=== PATIENT | male | born 1980 | race Two or more races ===

== ENCOUNTER → 2016-11-26 | Outpatient (CLI) | payer BC, OTHER ==
--- NOTE | 2016-11-27 05:08 | REP ---
Clinical: Suspect right sided mass. Technique: Real time resendez scale and color Doppler evaluation using linear high frequency transducer. Findings: With the exception of 3 mm and 4 mm right epididymal head cysts, the testicles and epididymi are normal in contour, size, echogenicity, and vascularity. No mass lesion, infectious/inflammatory process, or torsion noted. Small likely insignificant hydroceles noted. No varicoceles. Right testicle measures 4.6 x 2.3 x 2.8 cm. Left testicle measures 4.6 x 1.9 x 2.6 cm. Impression: Small right epididymal head cysts. Otherwise normal scrotal and testicular ultrasound. Signed by Kev Russell MD 11/27/2016 04:59 A
== END ==
LOC: M SMT 09:53
PROVIDERS: ATTEND Urology
DX: N50.3 Cyst of epididymis (principal)

== ENCOUNTER → 2016-12-24 | Outpatient (REF) | payer OTHER | LOC: M SMT 10:00 | PROVIDERS: ATTEND Urology | DX: Z30.2 Encounter for sterilization (principal) ==

== ENCOUNTER → 2017-05-06 | Outpatient (CLI) | payer BC, OTHER ==
[2017-05-06 09:58] LABS: MEAN CORPUSCULAR HEMOGLOBIN 30.2 pg (27.0-33.0); MEAN CORPUSCULAR HGB CONC 33.8 g/dl (32.0-36.5); MEAN CORPUSCULAR VOLUME 89.5 fl (80.0-96.0); RED CELL DISTRIBUTION WIDTH 12.4 % (11.5-14.5); WHITE BLOOD COUNT 6.9 10^3/uL (4.0-10.0)
[2017-05-06 10:34] LABS: ALBUMIN 4.4 GM/DL (3.2-5.2); ALBUMIN/GLOBULIN RATIO 1.38 (1.00-1.93); ALKALINE PHOSPHATASE 83 U/L (45-117); ALT/SGPT 27 U/L (12-78); ANION GAP 7 MEQ/L (8-16); AST/SGOT 16 U/L (15-37); BILIRUBIN,TOTAL 0.9 MG/DL (0.2-1.0); BLOOD UREA NITROGEN 16 MG/DL (7-18); CALCIUM LEVEL 9.2 MG/DL (8.5-10.1); CARBON DIOXIDE LEVEL 29 MEQ/L (21-32); CHLORIDE LEVEL 103 MEQ/L (98-107); CHOLESTEROL LEVEL 131 MG/DL (<200); CREATININE FOR GFR 0.93 MG/DL (0.70-1.30); GLOMERULAR FILTRATION RATE > 60.0 (>60); GLUCOSE, FASTING 87 MG/DL (70-105); PERCENT SATURATION 30.6 % (19.7-50.0); POTASSIUM SERUM 4.4 MEQ/L (3.5-5.1); SODIUM LEVEL 139 MEQ/L (136-145); THYROXINE (T4) 7.2 UG/DL (4.5-12.0); TOTAL IRON BINDING CAPACITY 337 UG/DL (250-450); TOTAL PROTEIN 7.6 GM/DL (6.4-8.2); TRIGLYCERIDES LEVEL 52 MG/DL (<150)
[2017-05-06 10:58] LABS: VITAMIN B12 LEVEL 751 PG/ML (247-911)
== END ==
LOC: M LAB 08:52
PROVIDERS: ATTEND Family Medicine
DX: D64.9 Anemia, unspecified (principal); R53.83 Other fatigue

== ENCOUNTER 2017-07-09 09:27 | Emergency (ER) | payer OTHER, BC ==
[~2017-07-09] VITALS: Ht 182.9 cm; Wt 84.1 kg
[2017-07-09 09:28] VITALS: BP 142/86
== END 2017-07-09 10:06 | disposition home or self-care (01) ==
LOC: M ED 09:27
DX: M25.511 Pain in right shoulder (principal); G89.29 Other chronic pain

== ENCOUNTER 2018-02-01 12:06 | Day surgery (SDC) | payer BC, OTHER ==
[2018-02-01] MEDS: NS 1,000 ML IV (12:15)
[2018-02-01] MEDS ORDERED: PROPOFOL 200 MG/20 ML VIAL As Ordered ×2 (12:54)
== END 2018-02-01 13:54 | disposition home or self-care (01) ==
LOC: M OPP 12:06
DX: R13.10 Dysphagia, unspecified (principal); R63.4 Abnormal weight loss; R63.8 Other symptoms and signs concerning food and fluid intake; K20.0 Eosinophilic esophagitis; K22.2 Esophageal obstruction; K21.9 Gastro-esophageal reflux disease without esophagitis; F17.220 Nicotine dependence, chewing tobacco, uncomplicated; Z79.899 Other long term (current) drug therapy
CPT/HCPCS: 43249

== ENCOUNTER → 2020-02-08 | Outpatient (CLI) | payer BC, OTHER ==
[~2020-02-08] MED LIST: OMEP40CA97 PO
[2020-02-08 15:36] LABS: BARBITURATES URINE REFLEX NEGATIVE (NEGATIVE); BENZODIAZEPINES URINE REFLEX NEGATIVE (NEGATIVE); COCAINE METABOLITE URINE REFLE NEGATIVE (NEGATIVE); METHADONE URINE REFLEX NEGATIVE (NEGATIVE); OPIATES URINE REFLEX NEGATIVE (NEGATIVE); PHENCYCLIDINE URINE REFLEX NEGATIVE (NEGATIVE)
[2020-02-08 15:48] LABS: AMPHETAMINES URINE REFLEX PENDING CONFIRMATION (NEGATIVE); CANNABINOIDS URINE REFLEX PENDING CONFIRMATION (NEGATIVE)
[2020-02-13 16:08] LABS: Amphetamine Positive (.); Amphetamines Positive (.); Cannabinoid Positive (.); GC Amphetamine >4000 ng/mL (Cutoff=500); GC Carboxy THC 22 ng/mL (Cutoff=10); Methamphetamine Negative (Cutoff=500)
== END ==
LOC: M LAB 13:39
PROVIDERS: ATTEND Family Medicine
DX: Z79.899 Other long term (current) drug therapy (principal)

== ENCOUNTER → 2020-08-24 | Outpatient (CLI) | payer BC, OTHER ==
[~2020-08-24] MED LIST changes: +AMPHET/DEXTR PO
== END ==
LOC: M LABSMTC 10:50
PROVIDERS: ATTEND Anesthesiology
DX: Z01.812 Encounter for preprocedural laboratory examination (principal); Z20.822 Contact with and (suspected) exposure to COVID-19

== ENCOUNTER 2020-08-29 07:30 | Day surgery (SDC) | payer BC, OTHER ==
[~2020-08-29] VITALS: Ht 180.3 cm; Wt 96.1 kg
[~2020-08-29 07:30] MED LIST changes: +NS 1,000 ML IV ONE
--- OUTSIDE RECORDS SUMMARY | 2020-08-29 07:34 | CCD | Continuity of Care Document ---
Author Author Tim ESTRADA M.D. Organization Unknown Address [address] [place] [address] Phone [phone] Care Team Providers Care Barrelhead Inspector Name Role Phone Misa Manrique M.D. AUTM [phone] Problems Active Problems Provider Date Dysphagia Ashok Estrada M.D. Onset: 01/27/20 18 Eosinophilic esophagitis Ashok Estrada M.D. Onset: 07/2012 Dysphagia Eagle NunezNLaly Onset: 06/01/20 12 Social History Type Date Description Comments Sex Unknown ETOH Use Occasionally Tobacco Use Start: Unknown Denies smoking, but Chews tobacc o Allergies, Adverse Reactions, Alerts Description No Known Drug Allergies Medications Active Medications SIG Qnty Indications Ordering Provide r Date Omeprazole 40mg Capsules DR Take One Capsule By Mouth Twice Daily 180caps Ashok Estrada M.D. 06/15/2012 Amphetamine-Dextroamphetamine 30mg Tablets Misa Manrique M.D. Immunizations Description No Information Available Vital Signs Date Vital Result Comment 08/14/2020 11:12am Height 71 inches 5'11" Weight 210.00 lb BP Systolic 130 mmHg BP Diastolic 98 mmHg Heart Rate 93 /min BMI (Body Mass Index) 29.3 kg/m2 Weight 95.256 kg Body Temperature 98.4 F 01/26/2018 2:48pm Height 70 inches 5'10" Weight 206.00 lb BP Systolic 122 mmHg BP Diastolic 80 mmHg Heart Rate 87 /min BMI (Body Mass Index) 29.6 kg/m2 Weight 93.442 kg Results Description No Information Available Procedures Description No Information Available Medical Devices Description No Information Available Encounters Description No Information Available Assessments Date Code Description Provider 08/14/2020 R13.10 Dysphagia, unspecified Ashok Estrada M.D. Plan of Treatment Future Appointment(s):* 08/29/2020 9:00 am - Ashok Estrada M.D. at Main Office 08/14/2020 - Ashok Estrada M.D.* R13.10 Dysphagia, unspecified* Comments: * 39 yo wm with a h/o dysphagia. Past egd + bx showed histology consistent with Eosinophilic Esophagitis. He is now having more symptoms of dysphagia even though he is on a ppi bid. No weight loss, nausea, or vomiting. Last scope 2018.Plan:1. Egd + balloon dilatation.2. PPI bid. Functional Status Description No Information Available Mental Status Description No Information Available Referrals Description No Information Available
--- OUTSIDE RECORDS SUMMARY | 2020-08-29 07:34 | CCD | Continuity of Care Document ---
Author Author Tim ESTRADA M.D. Organization Unknown Address [address] [place] [id number] Phone [phone] Care Team Providers Care Competitive Intelligence Manager Name Role Phone Misa Manrique M.D. AUTM [phone] Problems Active Problems Provider Date Dysphagia Ashok Estrada M.D. Onset: 01/27/20 18 Eosinophilic esophagitis Ashok Estrada M.D. Onset: 07/2012 Dysphagia Jonathon Nunez Onset: 06/01/20 12 Social History Type Date [...] Medical Devices Description No Information Available Encounters Type Date Location Provider Dx Diagnosis Office Visit 08/14/2020 10:45a Main Office Ashok Estrada M.D. R 13.10 Dysphagia, unspecified Assessments Date Code Description Provider 08/14/2020 R13.10 Dysphagia, unspecified Ashok Estrada M.D. Plan of Treatment Future Appointment(s):* 08/22/2020 6:45 am - Cheryl-Codey at Main Office * 08/29/2020 9:00 am - Ashok Estrada M.D. [...]
--- OUTSIDE RECORDS SUMMARY | 2020-08-29 07:34 | CCD ---
Author Author [facility] Organization [facility] Address Unknown Phone Unavailable Care Team Providers Care Webbing Supervisor Name Role Phone Tanner PEREZ MD Unavailable Unavailable Tanner PEREZ MD Unavailable Unavailable Tanner PEREZ MD Unavailable Unavailable Tanner PEREZ MD Unavailable Unavailable Tanner PEREZ MD Unavailable Unavailable Tanner PEREZ MD Unavailable Unavailable Tanner PEREZ MD Unavailable Unavailable Tanner PEREZ MD Unavailable Unavailable Tanner PEREZ MD Unavailable Unavailable Tanner PEREZ MD Unavailable Unavailable Tanner PEREZ MD Unavailable Unavailable Tanner PEREZ MD Unavailable Unavailable Tanner PEREZ MD Unavailable Unavailable Tanner PEREZ MD Unavailable Unavailable Tanner PEREZ MD Unavailable Unavailable Tanner PEREZ MD Unavailable Unavailable Tanner PEREZ MD Unavailable Unavailable Tanner PEREZ MD Unavailable Unavailable Tanner PEREZ MD Unavailable Unavailable Tanner PEREZ MD Unavailable Tanner Robbins MD Unavailable Unavailable Tanner PEREZ MD Unavailable Unavailable Tanner PEREZ MD Unavailable Unavailable Tanner PEREZ MD Unavailable Unavailable Tanner PEREZ MD Unavailable Unavailable SETTERTanner MD Unavailable Unavailable SETTER, Tanner IVORY MD Unavailable Unavailable SETTER, Tanner IVORY MD Unavailable Unavailable SETTER, Tanner IVORY MD Unavailable Unavailable SETTER, Tanner IVORY MD Unavailable Unavailable SETTER, Tanner IVORY MD Unavailable Unavailable SETTER, Tanner IVORY MD Unavailable Unavailable SETTER, Tanner IVORY MD Unavailable Unavailable SETTER, Tanenr IVORY MD Unavailable Unavailable SETTER, Tanner IVORY MD Unavailable Unavailable SETTER, Tanner IVORY MD Unavailable Unavailable SETTER, aTnner IVORY MD Unavailable Unavailable SETTER, Tanner IVORY MD Unavailable Unavailable SETTER, Tanner IVORY MD Unavailable Unavailable SETTER, Tanner IVORY MD Unavailable Unavailable SETTER, Tanner IVORY MD Unavailable Unavailable SETTER, Tanner IVORY MD Unavailable Unavailable SETTER, Tanner IVORY MD Unavailable Unavailable SETTER, Tanner IVORY MD Unavailable Unavailable SETTER, Tanner IVORY MD Unavailable Unavailable SETTER, Tanner IVORY MD Unavailable Unavailable SETTER, Tanner IVORY MD Unavailable Unavailable SETTER, Tanner IVORY MD Unavailable Unavailable SETTER, Tanner IVORY MD Unavailable Unavailable SETTER, Tanner IVORY MD Unavailable Unavailable SETTER, Tanner IVORY MD Unavailable Unavailable SETTER, Tanner IVORY MD Unavailable Unavailable SETTER, Tanner IVORY MD Unavailable Unavailable SETTER, Tanner IVORY MD Unavailable Unavailable SETTER, Tanner IVORY MD Unavailable Unavailable SETTER, Tanner IVORY MD Unavailable Unavailable SETTER, Tanner IVORY MD Unavailable Unavailable SETTER, Tanner IVORY MD Unavailable Unavailable SETTER, Tanner IVORY MD Unavailable Unavailable SETTER, Tanner IVORY MD Unavailable Unavailable SETTERTanner MD Unavailable Unavailable SETTERTanner MD Unavailable Unavailable SETTERTanner MD Unavailable Unavailable SETTERTanner MD Unavailable Unavailable SETTER, Tanner IVORY MD Unavailable Unavailable SETTER, Tanner IVORY MD Unavailable Unavailable SETTERTanner MD Unavailable Unavailable SETTERTanner MD Unavailable Unavailable SETTERTanner MD Unavailable Unavailable SETTERTanner MD Unavailable Unavailable SETTERTanner MD Unavailable Unavailable SETTER, Tanner IVORY MD Unavailable Unavailable SETTER, Tanner IVORY MD Unavailable Unavailable SETTER, Tanner IVORY MD Unavailable Unavailable SETTERTanner MD Unavailable Unavailable SETTERTanner MD Unavailable Unavailable SETTERTanner MD Unavailable Unavailable SETTERTanner MD Unavailable Unavailable SETTERTanner MD Unavailable Unavailable SETTER, Tanner IVORY MD Unavailable Unavailable SETTER, Tanner IVORY MD Unavailable Unavailable SETTER, J DIANELYS MD Unavailable Unavailable Tanner PEREZ MD Unavailable Unavailable Tanner PEREZ MD Unavailable Unavailable Tanner PEREZ MD Unavailable Unavailable Tanner PEREZ MD Unavailable Unavailable Tanner PEREZ MD Unavailable Unavailable Tanner PEREZ MD Unavailable Unavailable Tanner PEREZ MD Unavailable Unavailable Tanner PEREZ MD Unavailable Unavailable Tanner PEREZ MD Unavailable Unavailable Tanner PEREZ MD Unavailable Unavailable Tanner PEREZ MD Unavailable Unavailable Tanner PEREZ MD Unavailable Unavailable Tanner PEREZ MD Unavailable Unavailable Tanner PEREZ MD Unavailable Unavailable Tanner PEREZ MD Unavailable Unavailable Tanner PEREZ MD Unavailable Unavailable Tanner PEREZ MD Unavailable Unavailable Tanner PEREZ MD Unavailable Unavailable Tanner PEREZ MD Unavailable Unavailable Tanner PEREZ MD Unavailable Unavailable Tanner PEREZ MD Unavailable Unavailable Tanner PEREZ MD Unavailable Unavailable Tanner PEREZ MD Unavailable Unavailable Tanner PEREZ MD Unavailable Unavailable Tanner PEREZ MD Unavailable Unavailable Joe Estrada MD Unavailable Unavailable Joe Estrada MD Unavailable Unavailable Joe Estrada MD Unavailable Unavailable Joe Estrada MD Unavailable Unavailable Joe Estrada MD Unavailable Unavailable Joe Estrada MD Unavailable Unavailable Joe Estrada MD Unavailable Unavailable Joe Estrada MD Unavailable Unavailable Joe Estrada MD Unavailable Unavailable Joe Estrada MD Unavailable Unavailable Joe Estrada MD Unavailable Unavailable Joe Estrada MD Unavailable Unavailable Joe Estrada MD Unavailable Unavailable Joe Estrada MD Unavailable Unavailable Joe Estrada MD Unavailable Unavailable Joe Estrada MD Unavailable Unavailable Joe Estrada MD Unavailable Unavailable Joe Estrada MD Unavailable Unavailable Joe Estrada MD Unavailable Unavailable Joe Estrada MD Unavailable Unavailable Joe Estrada MD Unavailable Unavailable Joe Estrada MD Unavailable Unavailable Joe Estrada MD Unavailable Unavailable Joe Estrada MD Unavailable Unavailable Joe Estrada MD Unavailable Unavailable Joe Estrada MD Unavailable Unavailable Joe Estrada MD Unavailable Unavailable Joe Estrada MD Unavailable Unavailable Joe Estrada MD Unavailable Unavailable Natalie, Joe Pulido MD Unavailable Unavailable Natalie, Joe Pulido MD Unavailable Unavailable Natalie, Joe Pulido MD Unavailable Unavailable Natalie, Joe Pulido MD Unavailable Unavailable Natalie, Joe Pulido MD Unavailable Unavailable Natalie, Joe Pulido MD Unavailable Unavailable Natalie, Joe Pulido MD Unavailable Unavailable Natalie, Joe Pulido MD Unavailable Unavailable Natalie, Joe Pulido MD Unavailable Unavailable Natalie, Joe Pulido MD Unavailable Unavailable Natalie, Joe Pulido MD Unavailable Unavailable Natalie, Joe Pulido MD Unavailable Unavailable Natalie, Joe Pulido MD Unavailable Unavailable Natalie, Joe uPlido MD Unavailable Unavailable Natalie, Joe Pulido MD Unavailable Unavailable Natalie, Joe Pulido MD Unavailable Unavailable Natalie, Joe Pulido MD Unavailable Unavailable Natalie, Joe Pulido MD Unavailable Unavailable Natalie, Joe Pulido MD Unavailable Unavailable HAAS, R KIRTI ROAD TESTER Unavailable Unavailable HAAS, R KIRTI ROAD TESTER Unavailable Unavailable HAAS, R KIRTI ROAD TESTER Unavailable Unavailable HAAS, R KIRTI ROAD TESTER Unavailable Unavailable HAAS, R [address] TESTER Unavailable Unavailable HAAS, R [address] TESTER Unavailable Unavailable HAAS, R [address] TESTER Unavailable Unavailable HAAS, R [address] TESTER Unavailable Unavailable HAAS, R [address] TESTER Unavailable Unavailable HAAS, R [address] TESTER Unavailable Unavailable HAAS, R [address] TESTER Unavailable Unavailable HAAS, R [address] TESTER Unavailable Unavailable HAAS, R KIR[address] TESTER Unavailable Unavailable HAAS, R KIR[address] TESTER Unavailable Unavailable HAAS, R KIR[address]AD TESTER Unavailable Unavailable HAAS, R KIR[address] ROAD TESTER Unavailable Unavailable HAAS, R KIR[address] ROAD TESTER Unavailable Unavailable HAAS, R KIR[address]AD TESTER Unavailable Unavailable HAAS, R KIR[address]AD TESTER Unavailable Unavailable HAAS, R KIR[address]AD TESTER Unavailable Unavailable HAAS, R KIRTI ROAD TESTER Unavailable Unavailable HAAS, R KIRTI ROAD TESTER Unavailable Unavailable HAAS, R KIRTI ROAD TESTER Unavailable Unavailable HAAS, R KIR[address] ROAD TESTER Unavailable Unavailable HAAS, R KIRTI ROAD TESTER Unavailable Unavailable HAAS, R KIRTI ROAD TESTER Unavailable Unavailable HAAS, R KIRTI ROAD TESTER Unavailable Unavailable HAAS, R KIRTI ROAD TESTER Unavailable Unavailable HAAS, R KIR[address] TESTER Unavailable Unavailable HAAS, R KIR[address] TESTER Unavailable Unavailable HAAS, R KIR[address] TESTER Unavailable Unavailable HAAS, R KIR[address]AD TESTER Unavailable Unavailable HAAS, R KIR[address] ROAD TESTER Unavailable Unavailable HAAS, R KIR[address] ROAD TESTER Unavailable Unavailable HAAS, R KIR[address]AD TESTER Unavailable Unavailable HAAS, R KIRTI ROAD TESTER Unavailable Unavailable HAAS, R KIRTI ROAD TESTER Unavailable Unavailable HAAS, R KIRTI ROAD TESTER Unavailable Unavailable HAAS, R KIRTI ROAD TESTER Unavailable Unavailable HAAS, R KIRTI ROAD TESTER Unavailable Unavailable HAAS, R KIRTI ROAD TESTER Unavailable Unavailable Re-disclosure Warning The records that you are about to access may contain information from federally-assisted alcohol or drug abuse programs. If such information is present, then the following federally mandated warning applies: This information has been disclosed to you from records protected by federal confidentiality rules (42 CFR part 2). The federal rules prohibit you from making any further disclosure of this information unless further disclosure is expressly permitted by the written consent of the person to whom it pertains or as otherwise permitted by 42 CFR part 2. A general authorization for the release of medical or other information is NOT sufficient for this purpose. The Federal rules restrict any use of the information to criminally investigate or prosecute any alcohol or drug abuse patient.The records that you are about to access may contain highly sensitive health information, the redisclosure of which is protected by Article 27-F of the [facility] [place] Public Health law. If you continue you may have access to information: Regarding HIV / AIDS; Provided by facilities licensed or operated by the [facility] [place] Office of Mental Health; or Provided by the [facility] [place] Office for People With Developmental Disabilities. If such information is present, then the following [facility] [place] mandated warning applies: This information has been disclosed to you from confidential records which are protected by state law. State law prohibits you from making any further disclosure of this information without the specific written consent of the person to whom it pertains, or as otherwise permitted by law. Any unauthorized further disclosure in violation of state law may result in a fine or retirement sentence or both. A general authorization for the release of medical or other information is NOT sufficient authorization for further disc losure. Allergies and Adverse Reactions Type Description Substance Reaction Status Data Source(s ) Drug Class NO KNOWN ALLERGIES NO KNOWN [facility] Family History Family Member Name Family Member Gender Family Member Status Date o f Status Description Data Source(s) Unknown Female Problem [facility] ([facility]) Unknown Female Problem [facility] ([facility]) Unknown Female Problem [facility] ([facility] Unknown Female Problem [facility] ([facility]) Encounters Encounter Providers Location Date Indications Data Source(s ) Outpatient Attender: Ashok Estrada MD Main Office 08/14/2020 09:45:00 AM EST [facility] ([facility]) Outpatient Attender: DIANELYS PEREZ MD [id number] 2019 12:00:00 AM EDT - 01/09/2020 08:57:59 AM EDT Impingement syndrome of left shoulder [facility] Impingement syndrome of left shoulder Outpatient Attender: DIANELYS PEREZ MD 11/24/2019 12:00:00 [facility] Outpatient Attender: DIANELYS PEREZ MD 10/27/2019 12:00:00 [facility] Outpatient Attender: KIRTI HAAS NP [id number] 10/2018 12:00:00 AM EDT - 02/09/2019 02:54:53 PM EDT Impingement syndrome of left [facility] Impingement syndrome of left shoulder Medications Medication Brand Name Start Date Product Form Dose Route Admi nistrative Instructions Pharmacy Instructions Status Indications Reaction Description Data Source(s) Amphetamine aspartate 7.5 MG / Amphetami ne Sulfate 7.5 MG / Dextroamphetamine saccharate 7.5 MG / Dextroamphetamine Sulfate 7.5 MG Oral Tablet Amphetamine- Dextroamphetamine 30 MG Oral Tablet (ADDERALL) Amphetamine-Dextroamphetamine 30 MG Oral Tablet (ADDERALL) 12/09/2019 12:00:00 AM EDT active TK 1 T PO [facility] Insurance Providers Payer name Policy type / Coverage type Policy ID Covered democrat ID Covered democrat's relationship to orellana Policy Orellana Plan Information [facility] [id number] SP [id number] [employer] [id number] SP [id number] [facility] [id number] SP [id number] [facility] [id number] [facility] [id number] [facility] W Empl ANSI-Commercial [id number] [facility]() Workers Compensation [id number] Self [id number] [employer] [place] Commercial [id number] Self [id number] [employer] [id number] SP [id number] [employer] [place] Health Maintenance Organization (HMO) [id number] Self [id number] STATE INSURANCE FUND [id number] SP [id number] [employer] E[employer]IRE SETH DIV [id number] SP [id number] [facility] () Workers Compensation [id number] Self [id number] [facility]() Workers Compensation [id number] Self [id number] [employer] [place] Commercial [id number] Self [id number] STATE INSURANCE FUND O [id number] S [id number] [employer] SETH DIV [id number] SP [id number] [facility] () Workers Compensation Self State Ins [facility]() Workers Compensation Self [facility] [place] Commercial Self [employer] [id number] SP [id number] [employer] [id number] [id number] [employer] E[employer] S[employer] DIV [id number] FA2 [id number] [employer] SETH DIV [id number] SP [id number] Problems, Conditions, and Diagnoses Code Display Name Description Problem Type Effective Dates Data Source(s) Z98.890 Other specified postprocedural states Ot her specified postprocedural states Diagnosis 12/29/2019 11:02:25 AM EDT [facility] M75.42 Impingement syndrome of left shoulder Im pingement syndrome of left shoulder Diagnosis 12/29/2019 11:02:25 AM EDT [facility] Results ID Date Data Source [id number] 08/24/2020 10:00:00 AM EST [facility] Name Value Range Interpretation Code Description Data Day rce(s) Supporting Document(s) SARS coronavirus 2 RNA Not Detected [facility] [place] This lab was ordered by [facility] and reported by [facility]. ID Date Data Source [id number] 01/08/2020 09:26:02 AM EDT [facility] Name Value Range Interpretation Code Description Data Day rce(s) Supporting Document(s) Progress Note [facility] DJCFFa3xKbUSRfWa86/GCCodMQSji2KePShbGXn7BEtnUBGkV6SxCMW6aG5iADV0OTuDDjKeAoVrQZVt lbm [file] ICAgICAgICAgICAgICAgICAgICAgICAgICAgICAgIC AgICAgICAgICAgICAgICAgICAgICAgICAgICAgICAgICAgICAgICAgICANCiAgICAgICAgICAgICAgIC AgICAgICAgICAgICAgICAgICAgICAgICAgICAgICAgICAgICAgICAgICAgICAgICAgICAgICAgICAgIC AgICAgICAgICAgICAgICAgICAgICAgICANCiAgICAg ICAgICAgICAgICAgICAgICAgICAgICAgICAgICAgICAgICAgICAgICAgICAgICAgICAgICAgICAgICAg ICAgICAgICAgICAgICAgICAgICAgICAgICAgICAgICAgICANCiAgICAgICAgICAgICAgICAgICAgICAg ICAgICAgICAgICAgICAgICAgICAgICAgICAgICAgIC AgICAgICAgICAgICAgICAgICAgICAgICAgICAgICAgICAgICAgICAgICAgICANCiAgICAgICAgICAgIC AgICAgICAgICAgICAgICAgICAgICAgICAgICAgICAgICAgICAgICAgICAgICAgICAgICAgICAgICAgIC AgICAgICAgICAgICAgICAgICAgICAgICAgICANCiAg ICAgICAgICAgICAgICAgICAgICAgICAgICAgICAgICAgICAgICAgICAgICAgICAgICAgICAgICAgICAg ICAgICAgICAgICAgICAgICAgICAgICAgICAgICAgICAgICAgICANCiAgICAgICAgICAgICAgICAgICAg ICAgICAgICAgICAgICAgICAgICAgICAgICAgICAgIC AgICAgICAgICAgICAgICAgICAgICAgICAgICAgICAgICAgICAgICAgICAgICAgICANCiAgICAgICAgIC AgICAgICAgICAgICAgICAgICAgICAgICAgICAgICAgICAgICAgICAgICAgICAgICAgICAgICAgICAgIC AgICAgICAgICAgICAgICAgICAgICAgICAgICAgICAN CiAgICAgICAgICAgICAgICAgICAgICAgICAgICAgICAgICAgICAgICAgICAgICAgICAgICAgICAgICAg ICAgICAgICAgICAgICAgICAgICAgICAgICAgICAgICAgICAgICAgICANCiAgICAgICAgICAgICAgICAg ICAgICAgICAgICAgICAgICAgICAgICAgICAgICAgIC AgICAgICAgICAgICAgICAgICAgICAgICAgICAgICAgICAgICAgICAgICAgICAgICAgICANCjw/eHBhY2 judQHpbjN1L8frAe2KWf4SBI8xn2AtKDNtBHpdgiFuRwqFWcReXIRgChnBAwr8RTdkLZ3GqZGtA4ZuN3 GsLSgpHX9KAMOrMMLzaDCnJUIwVGIbYwV0DHVhZRnz QT0JpQOqLNonSUBcCUHwYP9SRULgD040qxQwZM7TCu6AUgLfOP0xbq4VEoVmLPQaDwsTZrh6OSipXN1V fSMgiWUnWkZxBLZLAxEnE8zvx8OvYwCrNBVCSAvaJD2Yd8RobHLaKWc+By8INN2xp9EyYItqFmEiAH2a bm4AJWpAKoMtE4QujLplXSRct1ygDRUfGK2mtYDbKS Q1XRzfpsneTTyeG2Q6uKKsHEWKCXUwbWY6ZrFlGdYyYiLgMVI0BUYqJX5jDLrvSN0ONOH5GEytGAXxXR TuU1jBBbQnIEEoIgQjpRcfYQ5YWsVtN0MkiyZkhYJmPcUlOTWWAe2+XKmbdbMkLwhUHcB4AMBap7SaWP p6UU9XBUMmRZtbVC0WBXQigA5iFHssFE3XBeOnNNPb YZCAGyPlE29qjAFrZPe9A5ZsBnCaMNWhGwmeLZKkCEctTjVdBQPrRyJyXSneNT9+ID4+DEiwRI6ZVQmm diXyIFXwBf4VRBGoPHQvPB8zRYOjBYGdW5N3gUuyTZYZCzRmN1oslyoxML7oBYUqZ717vGohpwBcQSVg CAPhYq1WGCBsGNK8GMLlnUHkBsLiIOWCJBxtXW7TzF GcMET8qO6uXEpjHIJwGTXoI4qSWdTumRbxKJ33kEamfmUmtRCjOWy+Db1MFV2lr8FrGUz1hwXtSYacAL O0ABcvTOLxZJWaDSVvTFC6BDW4OCFEFsEhMNXxDTSwZVlkANIgEEWrnt8PGVFbEANqXHPdUaQyTWUlXV SeMDshPWYvALAhAJOmKGYxAMWiWC2LBiOyARMzEKLn ASqdDXVzKUZqko5HRAVtSEAjRfY8NzClAPNdYJEyDGiwLJEwZQIrEJQtWPSqWBXxJL6EZnZiPXOtZUI2 NCKlGZBdJDBelz4TRPIwZYCqOMFnNkViURZsAIMvIEoiLSKrEBO4LCj5SNWoWQNsDN6OEmVoLPWuFEYl JKXqBYKrVSWdwc0KOQZvNJNtDAL0YgDrDWHxUTLsZV itAGViTBP2OQGaCKVrBMZbZB8OSbRrPATaHHV7DSmdKPHiYLDslu0UOHClVLTvLyVlOODkEQCxOASpKM eiUCWoPIB1ZEXlAOOoXBHqHU3IAtXeVHHjSCm4UNRxWNSdIVJjvd7TRLDtDCGtEeb9XCToDVCgRYOySD tdLUGgINO7XgChVNPbEEGaAX2OAjGaJSXnGJf1WtLv FXTfDINbec7PPZWoUGEwCHP4OLFqFOGoZAUhJIfqMRMtIGQ4ZNSdCXOdSOLdEF1ETxYfWZVdYsX2TEcy EVRxBOGneu0EVGThXYFlWSXkVXGcRLTvEMBjLQpqXWWlSITnDKC6BLUpTJVpPY3WLfGbXGjkYENBVfi3 PQegU4x0ZKWeUA5AH1Jzc3ZeCwKjDNYNTIqtBA8cbq WcYXUwQc3EL4cHXyhcM3DwJGJvB2AuWUMtOnl4OtPcCVQ7NsW7Fyy1GPIiYY9bHLD4AoYvSOFbRIKmKR HiIFO1LcTcYLNdHYzuPExkXcL0DyRzQC5IOt9NYgT5AMR0hWSeWy1YWcG2IODZKxGcYH4IVGt= Procedure Social History Code Duration Value Status Description Data Source(s ) Alcohol intake 01/08/2020 12:00:00 AM EDT Current drinker of al cohol (finding) completed Current drinker of alcohol (finding) [facility] Smoking 01/08/2020 12:00:00 AM EDT Never smoker completed Never s [facility] Vital Signs ID Date Data Source UNK Name Value Range Interpretation Code Description Data Source(s) Body temperature 98.4 [degF] 98.4 [degF] [facility] ([facility]) Body weight 95.256 kg 95.256 kg [facility] ([facility] Body mass index (BMI) [Ratio] 29.3 kg/m2 29.3 k g/m2 [facility] ([facility]) Heart rate 93 /min 93 /min [facility] ([facility]) Diastolic blood pressure 98 mm[Hg] 98 mm[Hg] [facility] ([facility]) Systolic blood pressure 130 mm[Hg] 130 mm[Hg] M EDENT ([facility]) Body weight 210.00 [lb_av] 210.00 [lb_av] MEDEN T ([facility]) Body height 71 [in_i] 71 [in_i] JOHNNY ([facility]) 5'11" Patient Treatment Plan of Care Planned Activity Planned Date Details Description Data Source (s) Amphetamine aspartate 7.5 MG / Amphetami ne Sulfate 7.5 MG / Dextroamphetamine saccharate 7.5 MG / Dextroamphetamine Sulfate 7.5 MG Oral Tablet 12/09/2019 12:00:00 AM [facility] ulices
[2020-08-29] MEDS ORDERED: fentaNYL 100 MCG/2 ML INJECTION (J3010) As Ordered ONE (07:46)
[2020-08-29] MEDS ORDERED: LIDOCAINE 2% 100MG/5ML SDV (FOR ANES.) As Ordered ONE (07:46)
[2020-08-29] MEDS ORDERED: propofoL 200 MG/20 ML VIAL As Ordered ONE ×2 (07:46→08:58)
--- NOTE | 2020-08-29 09:06 | ROOR ---
Patient Name: Tim Barba Procedure Date: 08/29/2020 8:48 AM Date of : 1980 Age: 40 Room: [facility] Gender: Male Note Status: Finalized Procedure: Upper GI endoscopy + Balloon Dilatation Indications: Dysphagia Providers: Ashok Estrada MD Referring MD: DEEPIKA AMTOS MD Requesting Provider: Medicines: Monitored Anesthesia Care Complications: No immediate complications. Procedure: Pre-Anesthesia Assessment: - The heart rate, respiratory rate, oxygen saturations, blood pressure, adequacy of pulmonary ventilation, and response to care were monitored throughout the procedure. The Endoscope was introduced through the mouth, and advanced to the second part of duodenum. The upper GI endoscopy was accomplished without difficulty. The patient tolerated the procedure well. Findings: The Z-line was regular and was found 40 cm from the incisors. Mucosal changes including ringed esophagus were found in the lower third of the esophagus. A TTS dilator was passed through the scope. Dilation with a 15-16.5-18 mm balloon dilator was performed to 18 mm in the entire esophagus. A small hiatal hernia was present. No other significant abnormalities were identified in a careful examination of the stomach. The exam of the duodenum was otherwise normal. Impression: - Z-line regular, 40 cm from the incisors. - Esophageal mucosal changes secondary to eosinophilic esophagitis. - Small hiatal hernia. - Dilation performed in the entire esophagus. - No specimens collected. - The examination was otherwise normal. Recommendation: - Patient has a contact number available for emergencies. The signs and symptoms of potential delayed complications were discussed with the patient. Return to normal activities tomorrow. Written discharge instructions were provided to the patient. - Resume previous diet. - Discharge patient to home. - Continue present medications. - Follow an antireflux regimen. - Return to my office in 3 months. - The findings and recommendations were discussed with the patient. Procedure Code(s): --- Professional --- 34965, Esophagogastroduodenoscopy, flexible, transoral; with transendoscopic balloon dilation of esophagus (less than 30 mm diameter) Diagnosis Code(s): --- Professional --- K20.0, Eosinophilic esophagitis K44.9, Diaphragmatic hernia without obstruction or gangrene R13.10, Dysphagia, unspecified CPT copyright 2019 [employer]. All rights reserved. The codes documented in this report are preliminary and upon physical chemistry professor review may be revised to meet current compliance requirements. Ashok Estrada MD Ashok Estrada MD 08/29/2020 9:06:42 AM Electronically signed by Ashok Estrada MD Number of Addenda: 0 Note Initiated On: 08/29/2020 8:48 AM Estimated Blood Loss: Estimated blood loss: none.
[2020-08-29 09:30] VITALS: BP 152/93
== END 2020-08-29 09:33 | disposition home or self-care (01) ==
LOC: M OPP 07:30
PROVIDERS: ATTEND Internal Medicine Gastroenterology
DX: R13.10 Dysphagia, unspecified (principal); K20.0 Eosinophilic esophagitis; K44.9 Diaphragmatic hernia without obstruction or gangrene; R12 Heartburn; Z87.891 Personal history of nicotine dependence; Z79.899 Other long term (current) drug therapy
CPT/HCPCS: 43249; J3010

== ENCOUNTER → 2020-11-02 | Outpatient (CLI) | payer BC, OTHER ==
[~2020-11-02] MED LIST changes: -NS 1,000 ML IV ONE
[2020-11-02 09:05] LABS: HEMOGLOBIN 13.3 g/dl (13.5-17.5); MEAN CORPUSCULAR HEMOGLOBIN 29.2 pg (27.0-33.0); MEAN CORPUSCULAR HGB CONC 33.3 g/dl (32.0-36.5); MEAN CORPUSCULAR VOLUME 87.7 fl (80.0-96.0); PLATELET COUNT, AUTOMATED 221 10^3/uL (150-450); RED BLOOD COUNT 4.56 10^6/uL (4.30-6.10); WHITE BLOOD COUNT 5.4 10^3/uL (4.0-10.0)
[2020-11-02 09:46] LABS: ALBUMIN 4.6 GM/DL (3.2-5.2); ALT/SGPT 22 U/L (12-78); BILIRUBIN,TOTAL 1.1 MG/DL (0.2-1.0); BLOOD UREA NITROGEN 12 MG/DL (7-18); CALCIUM LEVEL 9.2 MG/DL (8.5-10.1); CARBON DIOXIDE LEVEL 30 MEQ/L (21-32); CHLORIDE LEVEL 103 MEQ/L (98-107); CHOLESTEROL LEVEL 155 MG/DL (<200); CHOLESTEROL RISK RATIO 2.348 (<5); GLOMERULAR FILTRATION RATE > 60.0 (>60); GLUCOSE, FASTING 90 MG/DL (70-100); HDL CHOLESTEROL 66 MG/DL (>40); LDL CHOLESTEROL 72 MG/DL (<100); NON-HDL-C 89 MG/DL; POTASSIUM SERUM 4.2 MEQ/L (3.5-5.1); PROSTATIC SPECIFIC AG MONITOR 1.59 NG/ML (< 4.00); SODIUM LEVEL 138 MEQ/L (136-145); TOTAL PROTEIN 7.6 GM/DL (6.4-8.2); TRIGLYCERIDES LEVEL 86 MG/DL (<150)
[2020-11-02 09:54] LABS: HEMOGLOBIN A1c 5.2 %
[2020-11-02 11:16] LABS: TESTOSTERONE 464 NG/DL (241-827)
== END ==
LOC: M LAB 08:19
PROVIDERS: ATTEND Family Medicine
DX: E03.9 Hypothyroidism, unspecified (principal); I10 Essential (primary) hypertension; R53.83 Other fatigue

== ENCOUNTER → 2021-11-08 | Outpatient (CLI) | payer BC, OTHER ==
[~2021-11-08] MED LIST changes: +OMEP40CA4 PO; -OMEP40CA97 PO
[2021-11-08 11:56] LABS: HEMATOCRIT 40.5 % (42.0-52.0); HEMOGLOBIN 13.9 g/dl (13.5-17.5); MEAN CORPUSCULAR HEMOGLOBIN 29.6 pg (27.0-33.0); MEAN CORPUSCULAR HGB CONC 34.3 g/dl (32.0-36.5); MEAN CORPUSCULAR VOLUME 86.4 fl (80.0-96.0); PLATELET COUNT, AUTOMATED 268 10^3/uL (150-450); RED BLOOD COUNT 4.69 10^6/uL (4.30-6.10); WHITE BLOOD COUNT 5.6 10^3/uL (4.0-10.0)
[2021-11-08 12:35] LABS: ALBUMIN 4.4 GM/DL (3.2-5.2); ALT/SGPT 24 U/L (12-78); BILIRUBIN,TOTAL 0.5 MG/DL (0.2-1.0); BLOOD UREA NITROGEN 14 MG/DL (7-18); CALCIUM LEVEL 9.6 MG/DL (8.5-10.1); CARBON DIOXIDE LEVEL 32 MEQ/L (21-32); CHLORIDE LEVEL 105 MEQ/L (98-107); CHOLESTEROL LEVEL 165 MG/DL (<200); CHOLESTEROL RISK RATIO 2.796 (<5); CREATININE FOR GFR 0.97 MG/DL (0.70-1.30); GLOMERULAR FILTRATION RATE > 60.0 (>60); GLUCOSE, FASTING 92 MG/DL (70-100); HDL CHOLESTEROL 59 MG/DL (>40); LDL CHOLESTEROL 93 MG/DL (<100); NON-HDL-C 106 MG/DL; POTASSIUM SERUM 4.3 MEQ/L (3.5-5.1); PROSTATIC SPECIFIC AG MONITOR 2.31 NG/ML (< 4.00); SODIUM LEVEL 140 MEQ/L (136-145); THYROID STIMULATING HORMONE 0.906 uIU/ML (0.358-3.740); TRIGLYCERIDES LEVEL 65 MG/DL (<150)
[2021-11-08 12:46] LABS: HEMOGLOBIN A1c 5.5 %
[2021-11-08 12:52] LABS: TESTOSTERONE 468 NG/DL (241-827)
== END ==
LOC: M LAB 10:42
PROVIDERS: ATTEND Family Medicine
DX: E03.9 Hypothyroidism, unspecified (principal); I10 Essential (primary) hypertension; R53.83 Other fatigue

== ENCOUNTER → 2023-03-05 | Outpatient (CLI) | payer BC, OTHER ==
[2023-03-05 09:45] LABS: HEMATOCRIT 41.9 % (42.0-52.0); HEMOGLOBIN 14.2 g/dl (13.5-17.5); MEAN CORPUSCULAR HEMOGLOBIN 30.2 pg (27.0-33.0); MEAN CORPUSCULAR HGB CONC 33.9 g/dl (32.0-36.5); MEAN CORPUSCULAR VOLUME 89.1 fl (80.0-96.0); PLATELET COUNT, AUTOMATED 231 10^3/uL (150-450); WHITE BLOOD COUNT 4.4 10^3/uL (4.0-10.0)
[2023-03-05 10:06] LABS: HEMOGLOBIN A1c 5.4 % (4.0-6.0)
[2023-03-05 10:10] LABS: ALBUMIN 4.4 G/DL (3.2-5.2); ALKALINE PHOSPHATASE 86 U/L (46-116); ALT/SGPT 16 U/L (7.0-40); AST/SGOT < 8 U/L (<34); BILIRUBIN,TOTAL 1.6 MG/DL (0.3-1.2); BLOOD UREA NITROGEN 15 MG/DL (9-23); CALCIUM LEVEL 9.4 MG/DL (8.5-10.1); CARBON DIOXIDE LEVEL 29 MMOL/L (20-31); CHLORIDE LEVEL 102 MMOL/L (98-107); CHOLESTEROL LEVEL 181 MG/DL (<200); CHOLESTEROL RISK RATIO 2.13 (<5); CREATININE FOR GFR 0.97 MG/DL (0.70-1.30); GLOMERULAR FILTRATION RATE > 60.0 (>60); GLUCOSE, FASTING 103 MG/DL (60-100); HDL CHOLESTEROL 84.8 MG/DL (>40); LDL CHOLESTEROL 80.4 MG/DL (<100); NON-HDL-C 96.2 MG/DL; POTASSIUM SERUM 4.3 MMOL/L (3.5-5.1); PROSTATIC SPECIFIC AG MONITOR 1.08 NG/ML (< 4.00); SODIUM LEVEL 139 MMOL/L (136-145); TESTOSTERONE 655 NG/DL (241-827); THYROID STIMULATING HORMONE 1.443 uIU/ML (0.55-4.78); TOTAL 25(OH) VITAMIN D 36.5 NG/ML (20.0-100.0); TOTAL PROTEIN 7.6 G/DL (5.7-8.2); TRIGLYCERIDES LEVEL 79 MG/DL (<150)
== END ==
LOC: M LAB 09:12
PROVIDERS: ATTEND Family Medicine
DX: I10 Essential (primary) hypertension (principal); R53.83 Other fatigue; E03.9 Hypothyroidism, unspecified; E88.09 Other disorders of plasma-protein metabolism, not elsewhere classified